=== PATIENT | female | born 1990 | race Caucasian/White ===

== ENCOUNTER 2019-04-26 07:47 | Day surgery (SDC) | payer BC ==
[~2019-04-26 07:47] MED LIST: Lactated Ringers 1,000 ML IV SCH; Lidocaine 1% 4 ML ONE; Lidocaine 1%/Sod Bicarbonate in NS 8.4% 1 ML Syringe IDERM PRN; Midazolam 1 MG/ML 2 ML SDV ONE; Propofol 200 MG/20 ML SDV ONE; Sodium Chloride 0.9% 10 ML Syringe FLUSH PRN; ceFAZolin 1 GM Vial ONE; fentaNYL 100 MCG/2 ML SDV ONE
[2019-04-26] MEDS ORDERED: Ketamine 500 mg/10 ML MDV ONE (08:06)
[2019-04-26] MEDS ORDERED: Sodium Chloride 0.9% 50 ML SDV ONE (08:09)
--- NOTE | 2019-04-26 08:16 | PCM.PREANE ---
Preanesthetic Assessment - Procedure Proposed Procedure: cervical cone biopsy - Anesthesia/Transfusion/Family Hx Anesthesia History: Prior Anesthesia Without Reaction Family History of Anesthesia Reaction: No Transfusion History: No Prior Transfusion(s) - Review of Systems General: No Symptoms Pulmonary: Cough (tickle- a few weeks on and off) Cardiovascular: No Symptoms Gastrointestinal: Other (cramping pains) Neurological: No Symptoms Other: Reports: None, Neck Pain (tension- headache migraine today) - Physical Assessment NPO Status Date: 04/25/19 NPO Status Time: 23:30 Vital Signs: 137/89 87 97% 97.9 16 Height: 5 ft 6 in Weight: 106 kg ASA Class: 2 Mental Status: Alert & Oriented x3 Airway Class: Mallampati = 1 Dentition: Reports: Normal Dentition Thyro-Mental Finger Breadths: 2 Mouth Opening Finger Breadths: 3 ROM/Head Extension: Full Lungs: Clear to Auscultation, Normal Respiratory Effort Cardiovascular: Regular Rate, Regular Rhythm - Allergies Allergies/Adverse Reactions: Allergies Allergy/AdvReac Type Severity Reaction Status Date / Time Dairy Products Allergy Nausea and Verified 04/25/19 17:24 Vomiting - Blood Blood Available: No - Acknowledgements Anesthesia Type Planned: MAC Pt an Appropriate Candidate for the Planned Anesthesia: Yes Alternatives and Risks of Anesthesia Discussed w Pt/Guardian: Yes Pt/Guardian Understands and Agrees with Anesthesia Plan: Yes PreAnesthesia Questionnaire HEENT History: Reports: None Cardiovascular History: Reports: Heart Murmur Other Cardiovascular History: heart murmur at not detected for years Respiratory History: Reports: None Genitourinary History: Reports: Other (See Below) Other Genitourinary History: DESIRE I, DESIRE III, , [employer] History: Reports: Musculoskeletal History: Reports: Other (See Below) Other Musculoskeletal History: RIGHT WRIST SPRAIN Neurological History: Reports: Migraines Psychiatric History: Reports: None Endocrine/Metabolic History: Reports: Obesity/BMI 30+ Hematologic History: Reports: None Immunologic History: Reports: None Oncologic (Cancer) History: Reports: None Dermatologic History: Reports: None - Infectious Disease History Infectious Disease History: Reports: None - Past Surgical History Head Surgeries/Procedures: Reports: None HEENT Surgical History: Reports: Adenoidectomy, Oral Surgery, Tonsillectomy Cardiovascular Surgical History: Reports: None Respiratory Surgical History: Reports: None GI Surgical History: Reports: None Female Surgical History: Reports: None Male Surgical History: Reports: None Endocrine Surgical History: Reports: None Neurological Surgical History: Reports: None Musculoskeletal Surgical History: Reports: None Oncologic Surgical History: Reports: None Dermatological Surgical History: Reports: None - SUBSTANCE USE Smoking Status *Q: Former Smoker (6 years ago) Tobacco Use Within Last Twelve Months: No Second Hand Smoke Exposure: Yes Days Per Week of Alcohol Use: 1 Recreational Drug Use History: No - HOME MEDS Home Medications: Home Meds Cholecalciferol (Vitamin D3) [Vitamin D3] 1,000 unit PO DAILY 04/25/19 [History] Lactobacillus Acidophilus [Probiotic] 1 cap PO DAILY 04/25/19 [History] Magnesium Oxide [Magnesium] 500 mg PO BTNUNITS 04/25/19 [History] - CURRENT (IN HOUSE) MEDS Current Meds: Current Medications Lactated Ringer's (Ringers, Lactated) 1,000 mls @ 125 mls/hr IV ASDIRECTED NERY Stop: 04/26/19 23:00 Lidocaine/Sodium Bicarbonate (Buffered Lidocaine 1% In Ns 8.4%) 0.25 ml IDERM ONETIME PRN PRN Reason: Prior to IV Start Stop: 04/26/19 18:00 Sodium Chloride (Saline Flush) 10 ml FLUSH ASDIRECTED PRN PRN Reason: Keep Vein Open Stop: 04/26/19 18:00 Discontinued Medications Cefazolin Sodium (Ancef) Confirm Administered Dose 2 gm .ROUTE .STK-MED ONE Stop: 04/26/19 07:20 Fentanyl (Sublimaze) Confirm Administered Dose 100 mcg .ROUTE .STK-MED ONE Stop: 04/26/19 07:20 Lidocaine HCl (Xylocaine-Mpf 1%) Confirm Administered Dose 4 mls @ as directed .ROUTE .STK-MED ONE Stop: 04/26/19 07:19 Ketamine HCl (Ketalar) Confirm Administered Dose 500 mg .ROUTE .STK-MED ONE Stop: 04/26/19 08:07 Midazolam HCl (Versed 1 Mg/Ml) Confirm Administered Dose 2 mg .ROUTE .STK-MED ONE Stop: 04/26/19 07:20 Propofol (Diprivan 20 Ml) Confirm Administered Dose 200 mg .ROUTE .STK-MED ONE Stop: 04/26/19 07:20
[2019-04-26] MEDS ORDERED: Lidocaine 1% with EPINEPHrine 1:100,000 20 ML MDV ONE (08:24)
[2019-04-26] MEDS ORDERED: Propofol 200 MG/20 ML SDV ONE ×2 (09:07→09:42)
[2019-04-26] MEDS ORDERED: Ketorolac 30 MG/ML SDV ONE (09:37)
[2019-04-26] MEDS ORDERED: Ibuprofen 600 MG Tab PO PRN ×2 (09:53→16:00)
--- NOTE | 2019-04-26 09:57 | PCM48HPAN ---
Post Anesthesia Note - EVALUATION WITHIN 48HRS OF ANESTHETIC Vital Signs in Normal Range: Yes Patient Participated in Evaluation: Yes Respiratory Function Stable: Yes Airway Patent: Yes Cardiovascular Function Stable: Yes Hydration Status Stable: Yes Pain Control Satisfactory: Yes Nausea and Vomiting Control Satisfactory: Yes Mental Status Recovered: Yes Vital Signs: Last Vital Signs Temp 97.9 F 04/26/19 08:00 Pulse 87 04/26/19 08:00 Resp 16 04/26/19 08:00 BP 137/89 04/26/19 08:00 Pulse Ox 97 04/26/19 08:00 90 12 97.4 127/81 97.4
--- NOTE | 2019-04-26 09:57 | PCM.OPNOTE ---
- General Post-Op/Procedure Note Date of Surgery/Procedure: 04/26/19 Operative Procedure(s): Cervical cone biopsy, endocervical curettage above the cone Findings: White epithelium noted on posterior and anterior aspect of the cervix. Pre Op Diagnosis: DESIRE-3 Post-Op Diagnosis: DESIRE-3 Anesthesia Technique: MAC Other Anesthesia Type: Lidocaine quarter percent with [id number] mL total Primary Surgeon: Ismael Schaefer Secondary Surgeon: Michael Mejia Anesthesia Provider: Merry Cole Complex Care Nurse Practitioner: Veronica Chase Reason Complex Care Nurse Practitioner Was Necessary: Retraction, assistance, patient safety, quality of care. Pathology: 1. Cervical cone biopsy-stitch at 12 o'clock position 2. Endocervical curettage above cone site. Fluid Replacement, Intraop: 900 EBL in mLs: 100 Complications: None Condition: Good Free Text/Narrative:: Surgery duration: 30 minutes Procedure: The patient is taken to the operating room and placed in supine position on the operating table. She was administered Ancef 2 g IV preop for infection prophylaxis and had sequential compression stockings in place for DVT prophylaxis. MAC anesthesia was administered. After anesthesia patient was placed in a dorsal lithotomy position and prepped externally for this procedure. Internal prep was done with Lugol solution. A weighted speculum was placed in the vagina. The cervix was visualized and a stay suture was placed at the 3:00 and 9 o'clock position using #1 Vicryl suture. The Lugol solution was applied and the ectocervix appeared entirely normal. The cervix was infiltrated with lidocaine quarter percent with epinephrine-20 mL total. Cold knife cone biopsy was then performed. The specimen was tagged at 12 o'clock position with a piece of suture. Endocervical curettage was done above the cone site and sent as specimen #2. The base the cone was then cauterized. Short running lock suture was needed after cautery and administration mons else for a couple small bleeders. This then brought about adequate hemostasis. Hemostasis was confirmed at the end of procedure. The stay suture tails were cut and the speculum was removed. Sponge instrument needle counts are correct at the end of the procedure. She was returned to supine position. She tolerated the procedure well left the operating room in good condition.
[2019-04-26 11:23] VITALS: BP 124/78; PULSE 63
== END 2019-04-26 11:01 | disposition home or self-care (01) ==
LOC: JD.SDS 07:47
PROVIDERS: ATTEND Obstetrics & Gynecology
DX: D06.9 Carcinoma in situ of cervix, unspecified (principal); G43.909 Migraine, unspecified, not intractable, without status migrainosus; E66.9 Obesity, unspecified; Z68.37 Body mass index [BMI] 37.0-37.9, adult; Z87.891 Personal history of nicotine dependence; Z91.011 Allergy to milk products
CPT/HCPCS: 36415; 57520; 81001; 81025; 85025; J0690; J1885; J2001; J2250; J2704; J3010; J7120; 00940